=== PATIENT | male | born 1935 | race Caucasian/White ===

== ENCOUNTER → 2016-07-24 | Outpatient (CLI) | payer OTHER ==
--- NOTE | 2016-07-24 16:12 | DX ---
Videofluoroscopy with Speech Therapy Clinical History: 81-year-old male with Parkinson's disease and dysphagia. Technique: This exam was performed in conjunction with Evita, the speech therapist, and the patient was imaged in the lateral projection while ingesting thin barium, nectar-consistency barium, honey-co nsistency barium, applesauce coated with barium, a cracker coated with barium, and a 13-mm barium tab let mixed with applesauce. Fluoroscopy Time: 4.9 minutes (exposure dose of 12.90 mGy). Comparison Study: None. Findings: There is delayed oral mastication with some tongue fasciculations in this patient with a hi story of Parkinson's disease and some transient pooling in the vallecular aspect of the hypopharynx. With the thin and nectar-consistency liquid, there was some epiglottic undercoating, vestibular penet ration, and trace nonsensate aspiration, and the chin-tuck maneuver was only intermittently effective . There is no nasopharyngeal reflux, or cricopharyngeus spasm (or other upper esophageal sphincter dy sfunction). The patient was able to ingest a barium tablet with applesauce with relatively prompt egr ess. The ivette cracker was very prolonged during the oral phase. Impression: Azhdkdas-eu-bzhdyu oropharyngeal dysphagia, with silent aspiration noted with thin liquid , as well as an episode with nectar, with a chin-tuck maneuver only intermittently effective. Please also refer to the speech therapist's separate assessments and specific recommendations for fol low up.
== END ==
DX: R13.12 Dysphagia, oropharyngeal phase (principal); G20 Parkinson's disease
CPT/HCPCS: 74230; 92611; G8996; G8997; G8998

== ENCOUNTER 2016-08-15 09:07 | Inpatient (IN) | payer OTHER ==
--- NOTE | 2016-08-15 09:11 | EDPHY ---
HPI/HX/ROS/PE/MDM Narrative: CHIEF COMPLAINT: "Unresponsive." HPI: The patient is an 81-year-old male with a history of Parkinson's who presents via EMS for unresponsiveness. Per EMS when his caregivers tried to wake him up he would only respond with one word and then became unresponsive. He was responsive for EMS and can now follow commands. History is somewhat limited due to the patient's clinical condition. Family is not currently at bedside. REVIEW OF SYSTEMS: Aside from elements discussed in the HPI, a comprehensive 10-point review of systems was reviewed and is negative. PMH: Parkinson's, hypertension, diastolic heart failure, aortic stenosis. SOCIAL HISTORY: Lives in Assisted Living. . PHYSICAL EXAM: General: Patient is awake but somewhat sleepy in no acute distress. ENT: Eyes are normal to inspection. ENT inspection normal. Neck: Normal inspection. Full range of motion. Respiratory: No respiratory distress. Breath sounds normal bilaterally. Cardiovascular: Regular rate and rhythm. Strong peripheral pulses. Abdomen: The abdomen is nontender to palpation. There are no peritoneal signs. There are normal bowel sounds. Back: Normal to inspection. No tenderness to palpation. Skin: Normal color. No rash. Warm and dry. Extremities: Normal appearance. Full range of motion. Neuro: No focal deficits. Portions of this note were transcribed by an ED scribe. I personally performed the history, physical exam, and medical decision making; and confirm the accuracy of the information in the transcribed note. ED Course: I met EMS on arrival and obtained a report from the yard supervisor. An IV was established and labs ordered. 1033: Reassessed patient. He is sitting up in bed comfortably and reports feeling completely back to normal. 1111: Patient did not feel well enough to transfer. He and family requested admission. Consulted with Mandi Mi, hospitalist. She accepts admission for Dr. Avelar. MDM: This patient has severe Parkinsons and presents with an episode of decreased responsiveness this morning that has resolved in the ED. We performed a screening workup to determine possible etiology but no major abnormalities are seen. I see no signs of SAH, CVA, UTI, hyponatremia or renal failure. Given ongoing difficulty with ADLs, patient requires admission for workup and treatment, possible placement. - Data Points Laboratory Results: Laboratory Results 08/15/16 09:15 08/15/16 09:15 03/12/2508/15/16 08/15/16 09:29 09:15 09:15 WBC 5.41 10^3/uL 10^3/uL (3.80-9.50) RBC 4.47 10^6/uL 10^6/uL (4.40-6.38) Hgb 14.5 g/dL g/dL (13.7-17.5) Hct 43.7 % % (40.0-51.0) MCV 97.8 fL fL (81.5-99.8) MCH 32.4 pg pg (27.9-34.1) MCHC 33.2 g/dL g/dL (32.4-36.7) RDW 12.2 % % (11.5-15.2) Plt Count 215 10^3/uL 10^3/uL (150-400) MPV 9.7 fL fL (8.7-11.7) Neut % (Auto) 56.0 % % (39.3-74.2) Lymph % (Auto) 31.4 % % (15.0-45.0) [place] % (Auto) 7.6 % % (4.5-13.0) Eos % (Auto) 3.7 % % (0.6-7.6) Baso % (Auto) 1.1 % % (0.3-1.7) Nucleat RBC Rel Count 0.0 % % (0.0-0.2) Absolute Neuts (auto) 3.03 10^3/uL 10^3/uL (1.70-6.50) Absolute Lymphs (auto) 1.70 10^3/uL 10^3/uL (1.00-3.00) Absolute Monos (auto) 0.41 10^3/uL 10^3/uL (0.30-0.80) Absolute Eos (auto) 0.20 10^3/uL 10^3/uL (0.03-0.40) Absolute Basos (auto) 0.06 10^3/uL 10^3/uL (0.02-0.10) Absolute Nucleated RBC 0.00 10^3/uL 10^3/uL (0-0.01) Immature Gran % 0.2 % % (0.0-1.1) Immature Gran # 0.01 10^3/uL 10^3/uL (0.00-0.10) Sodium 144 mEq/L mEq/L (134-144) Potassium 4.6 mEq/L mEq/L (3.5-5.2) Chloride 108 mEq/L mEq/L (97-110) Carbon Dioxide 30 mEq/l mEq/l (22-31) Anion Gap 6 mEq/L L mEq/L (8-16) BUN 22 mg/dL mg/dL (7-23) Creatinine 0.9 mg/dL mg/dL (0.7-1.3) Estimated GFR > 60 Glucose 76 mg/dL mg/dL (70-100) Calcium 9.8 mg/dL mg/dL (8.5-10.4) Urine Color ALAINA Urine Appearance MODERATELY TURBID Urine pH 7.0 (5.0-7.5) Ur Specific [place] 1.016 (1.002-1.030) Urine Protein NEGATIVE (NEGATIVE) Urine Ketones NEGATIVE (NEGATIVE) Urine Blood NEGATIVE (NEGATIVE) Urine Nitrate NEGATIVE (NEGATIVE) Urine Bilirubin NEGATIVE (NEGATIVE) Urine Urobilinogen NEGATIVE EU EU (0.2-1.0) Ur Leukocyte Esterase NEGATIVE (NEGATIVE) Ur Culture Indicated? NOT INDICATED (NI) Urine Glucose NEGATIVE (NEGATIVE) Medications Given: Discontinued Medications Sodium Chloride (Ns) 1,000 mls @ 0 mls/hr IV ONCE ONE PRN Reason: Wide Open Stop: 08/15/16 09:21 Last Admin: 08/15/16 09:30 Dose: 1,000 mls General Initial Vital Signs: Initial Vital Signs Temperature (C) 36.6 C 08/15/16 09:07 Heart Rate 85 08/15/16 09:07 Respiratory Rate 19 08/15/16 09:07 Blood Pressure 185/110 H 08/15/16 09:07 O2 Sat (%) 95 08/15/16 09:07 O2 Delivery Mode Room Air Allergies/Adverse Reactions: [place] Allergy (Intermediate, Uncoded 04/25/14 20:04) Other-Enter Comments MSG Allergy (Intermediate, Uncoded 04/25/14 20:04) Other-Enter Comments Home Medications: Medication Instructions Recorded Acetaminophen [Tylenol ES 500 mg 1,000 mg PO DAILY PRN 04/11/15 (*)] Aspirin EC [Aspirin EC 81 mg (*)] 81 mg PO DAILY 04/11/15 Latanoprost 0.005% [Xalatan 0.005% 1 drops EACHEYE HS 04/11/15 (*)] Quinapril HCl [Accupril 40 MG] 40 mg PO BID 04/11/15 Sodium Cl Nasal [[place] (*)] 1 spray NS DAILY PRN 04/11/15 DULoxetine [Cymbalta 30 MG (*)] 30 mg PO DAILY 01/09/16 Loratadine [Claritin 10 mg] 10 mg PO DAILY 01/09/16 Multivitamins [Multivitamin (*)] 1 each PO DAILY 01/09/16 Psyllium Husk [Metamucil] 0.52 gm PO DAILY 01/09/16 Furosemide [Lasix 20 MG (*)] 20 mg PO DAILY 03/26/16 Potassium Chloride [Klor-Con 10] 10 meq PO DAILY 03/26/16 Amoxicillin 2,000 mg PO DAILY PRN 08/15/16 Bisacodyl [Dulcolax] 10 mg RC DAILY PRN 08/15/16 C/E/Zn/Cu/OM3/DHA/EPA/LUT/ZEAX 2 each PO DAILY 08/15/16 [Preservision Areds 2 Softgel] Carbidopa/Levodopa 25/100Mg 1 tab PO QID 08/15/16 [Sinemet 25/100 MG (*)] Desonide 0.05% [Desonide 0.05% 1 lori TP DAILY PRN 08/15/16 Cream (*)] Gabapentin [Neurontin 100 MG (*)] 100 mg PO QID 08/15/16 Herbals/Supplements -Info Only 1 ea PO DAILY 08/15/16 Departure - Departure Disposition: [facility] Acute Clinical Impression: Altered mental status Qualifiers: Altered mental status type: unspecified Qualified Code(s): R41.82 - Altered mental status, unspecified Condition: Fair Report Scribed for: Dmitry June Report Scribed by: Nash Pérez Date of Report: 08/15/16 Time of Report: 09:12
[2016-08-15] MEDS ORDERED: NS 1,000 ML IV ONE (09:20)
[2016-08-15 09:31] LABS: % IMMATURE GRANULYOCYTES 0.2 % (0.0-1.1); ABSOLUTE IMMATURE GRANULOCYTES 0.01 10^3/uL (0.00-0.10); ADD DIFF? NO; ADD MORPH? NO; ADD SCAN? NO; ATYPICAL LYMPHOCYTE FLAG 10 (0-99); FRAGMENT RBC FLAG 0 (0-99); HEMATOCRIT 43.7 % (40.0-51.0); HEMOGLOBIN 14.5 g/dL (13.7-17.5); LEFT SHIFT FLG 0 (0-99); LIPEMIA HEMOLYSIS FLAG 80 (0-99); MEAN CELL HEMOGLOBIN 32.4 pg (27.9-34.1); MEAN CELL HEMOGLOBIN CONCENTR. 33.2 g/dL (32.4-36.7); MEAN CELL VOLUME 97.8 fL (81.5-99.8); MEAN PLATELET VOLUME 9.7 fL (8.7-11.7); PLATELET CLUMPS FLAG 10 (0-99); PLATELET COUNT 215 10^3/uL (150-400); RED BLOOD CELL COUNT 4.47 10^6/uL (4.40-6.38); RED CELL DISTRIBUTION WIDTH 12.2 % (11.5-15.2)
[2016-08-15 09:43] LABS: COLOR AMBER; LEUKOCYTE ESTERASE,URINE NEGATIVE (NEGATIVE); NITRITE,URINE NEGATIVE (NEGATIVE)
--- NOTE | 2016-08-15 09:43 | CPEKG ---
Heart Rate: 69 RR Interval: 870 P-R Interval: 172 QRSD Interval: 108 QT Interval: 412 QTC Interval: 442 P Rogers: 55 QRS Rogers: -27 T Wave Rogers: 21 EKG Severity - NORMAL ECG - EKG Impression: SINUS RHYTHM Electronically Signed By: Dmitry June 15-Aug-2016 14:46:43
[2016-08-15 09:46] LABS: ANION GAP 6 mEq/L (8-16); CALCIUM 9.8 mg/dL (8.5-10.4); CARBON DIOXIDE 30 mEq/l (22-31); CHLORIDE 108 mEq/L (97-110); CREATININE 0.9 mg/dL (0.7-1.3); GLOMERULAR FILTRATION RATE > 60; GLUCOSE 76 mg/dL (70-100); POTASSIUM 4.6 mEq/L (3.5-5.2); SODIUM 144 mEq/L (134-144)
[2016-08-15] MEDS ORDERED: DESONIDE 0.05% 15 GM CREAM TP PRN (13:19)
[2016-08-15] MEDS ORDERED: SODIUM CL NASAL 45 ML BTL NS PRN (13:19)
[2016-08-15] MEDS ORDERED: ACETAMINOPHEN 500 MG TAB PO PRN (13:19)
[2016-08-15] MEDS ORDERED: BISACODYL 10 MG SUPP PR PRN (13:19)
[2016-08-15] MEDS ORDERED: NS 1,000 ML IV SCH (15:30)
[2016-08-15] MEDS: CARBIDOPA/LEVODOPA 25 MG/100 MG TAB PO SCH ×2 (17:02→21:21)
[2016-08-15] MEDS: GABAPENTIN 100 MG CAP PO SCH ×2 (17:02→21:21)
[2016-08-15] MEDS ORDERED: ONDANSETRON 4 MG/2 ML VIAL IVP PRN (18:06)
[2016-08-15] MEDS ORDERED: ACETAMINOPHEN 325 MG TAB PO PRN (18:06)
--- NOTE | 2016-08-15 18:44 | PDGENHP ---
History and Physical History and Physical: HISTORY AND PHYSICAL CC:Change in mentation HISTORY: patient himself does not really remember what happened today, only recalls that his family described to happen. History comes mostly from his family through our ER staff and paramedics. The patient was at home and his family went to wake him up from bed today they had difficulty waking him. Eventually he did wake up. There is no evidence of seizure that the family noticed. I am unable to determine from the available history how quickly the patient awakened or whether he was confused upon awakening. There had been no evidence of incontinence or tongue biting or other injury. The patient apparently did not have any specific concerning symptoms at that time otherwise. He tells me that yesterday he had a good day, ate his meals well, had no fevers respiratory cardiac or neurologic symptoms when I reviewed those systems. Upon arrival of paramedics at his home the patient was awake and cooperative and normally conversant. Upon arrival here he had a normal neurologic exam per the ER staff. The patient tells me there have been no changes in medications. He does not drink alcohol. ROS: A comprehensive 10 system review revealed no other significant findings PAST MEDICAL HISTORY: Parkinson's disease, advanced Hypertension Diastolic congestive heart failure Aortic stenosis Urine retention FAMILY MEDICAL HISTORY: the patient does not recall any pertinent medical issues I could find nothing in terms of any significant family medical history and past records here SOCIAL HISTORY: The patient lives in assisted living apartment with his He has a long standing DNR order request No tobacco or alcohol MEDICATIONS: The patients list has been reconciled by our clinical pharmacist in the EMR. I have reviewed the list and ordered appropriate medicines. PHYSICAL EXAMINATION: Vital Signs: some hypertension otherwise stable without fever Mud Engineer: sinus rhythm in the ER Examination: General: alert, oriented, some memory deficit that seems at baseline otherwise good mentation, relaxed Neurologic: normal speech/language, normal rn angiography, no focal weakness Skin: warm, dry, good color, no rash HEENT: normal Neck: no mass or jvd Resps: relaxed Lungs: clear breath sounds Heart: regular, 2/6 systolic murmur at the base suggestive of aortic stenosis Abdomen: soft, nondistended, nontender, +BS, no mass Upper Extremities: normal Lower Extremities: no edema, warm No Bleeding or bruising IV site: looks normal LABORATORY DATA: unremarkable CBC metabolic panel and urinalysis ASSESSMENT: -ALTERED MENTATION IN THAT THE PATIENT WAS DIFFICULT TO AROUSE FROM SLEEP THIS MORNING, RESOLVED -SYSTOLIC HYPERTENSION -AORTIC STENOSIS -PARKINSON'S DISEASE The cause of this syndrome is unknown at this time. It is possible that he was merely sleeping and difficult to arouse from sleep. There was nothing to suggest stroke per se as far as I can tell but is really not clear what his neurologic status was upon awakening. He certainly has no signs of stroke at this time. there is no sign of infectious illness or internal organ dysfunction. Electrolytes are good. There was nothing to specifically suggest arrhythmia. He has no arrhythmia history. He does have some significant hypertension systolic here as well as Parkinson's disease and aortic stenosis. In patients with advanced Parkinson's disease it is very common to have autonomic instability with both systolic hypertension and marked orthostatic hypotension. He does take a diuretic and an OMER inhibitor and it is possible that he could have had a combination of low volume with OMER-inhibitor afterload in the setting of aortic stenosis and developed some hypotension making him hard to arouse. We have no direct evidence of this and 1 would think he would be more likely to have these problems in the way of postural syncope as opposed to trouble lying in bed. I have been unable at this point to find his vital signs from the paramedics on arrival at his place. PLANS: -Observe overnight for signs of instability in the way of vital signs or any signs of infectious or other medical process - Repeat lab tests in the morning -PT and OT evaluations for ambulation and mobility safety I have reviewed the patient's case in detail with Dr. Dmitry June I have reviewed the patient's past medical records as part of this assessment, including previous hospital records with multiple prior admissions here
[2016-08-15 19:20] LABS: ALANINE AMINOTRANSFERASE 21 IU/L (21-72); ALBUMIN 3.4 g/dL (3.5-5.0); ALKALINE PHOSPHATASE 135 IU/L (38-126); ANION GAP 7 mEq/L (8-16); ASPARTATE AMINOTRANSFERASE 21 IU/L (17-59); BILIRUBIN,TOTAL 1.3 mg/dL (0.1-1.4); CALCIUM 9.2 mg/dL (8.5-10.4); CARBON DIOXIDE 28 mEq/l (22-31); CHLORIDE 106 mEq/L (97-110); CREATININE 0.7 mg/dL (0.7-1.3); GLOMERULAR FILTRATION RATE > 60; GLUCOSE 96 mg/dL (70-100); POTASSIUM 4.2 mEq/L (3.5-5.2); SODIUM 141 mEq/L (134-144); TOTAL PROTEIN 6.8 g/dL (6.3-8.2)
[2016-08-16] MEDS: QUINAPRIL HCL 40 MG PO SCH ×3 (00:03→21:59)
[2016-08-16] MEDS: LATANOPROST 0.005% 2.5 ML OPHT DROPS EACHEYE SCH ×2 (00:03→22:11)
[2016-08-16] MEDS ORDERED: hydrALAZINE 10 MG TAB PO PRN (04:35)
[2016-08-16] MEDS: GABAPENTIN 100 MG CAP PO SCH ×4 (04:58→21:58)
[2016-08-16] MEDS: CARBIDOPA/LEVODOPA 25 MG/100 MG TAB PO SCH ×4 (04:58→21:58)
[2016-08-16 05:17] LABS: % IMMATURE GRANULYOCYTES 0.3 % (0.0-1.1); ABSOLUTE IMMATURE GRANULOCYTES 0.02 10^3/uL (0.00-0.10); ADD DIFF? NO; ADD MORPH? NO; ADD SCAN? NO; ATYPICAL LYMPHOCYTE FLAG 20 (0-99); FRAGMENT RBC FLAG 0 (0-99); HEMATOCRIT 39.1 % (40.0-51.0); HEMOGLOBIN 13.3 g/dL (13.7-17.5); LEFT SHIFT FLG 0 (0-99); LIPEMIA HEMOLYSIS FLAG 90 (0-99); MEAN CELL HEMOGLOBIN 32.7 pg (27.9-34.1); MEAN CELL VOLUME 96.1 fL (81.5-99.8); MEAN PLATELET VOLUME 9.9 fL (8.7-11.7); PLATELET CLUMPS FLAG 10 (0-99); PLATELET COUNT 203 10^3/uL (150-400); RED BLOOD CELL COUNT 4.07 10^6/uL (4.40-6.38)
[2016-08-16] MEDS: CETIRIZINE 10 MG TAB PO SCH (08:27)
[2016-08-16] MEDS: POTASSIUM CL 10 MEQ TAB PO SCH (08:27)
[2016-08-16] MEDS: PSYLLIUM METAMUCIL 1 PKT PO SCH (08:27)
[2016-08-16] MEDS: ASPIRIN EC 81 MG TAB PO SCH (08:27)
[2016-08-16] MEDS: DULoxetine 30 MG CAP PO SCH (08:27)
[2016-08-16] MEDS: PRESERVISION AREDS2 FORMULA EYE VIT 1 EACH PO SCH (08:27)
[2016-08-16] MEDS: MULTIVITAMINS 1 EACH TAB PO SCH (08:27)
[2016-08-16] MEDS: FUROSEMIDE 20 MG TAB PO SCH (08:27)
[2016-08-16] MEDS: ENOXAPARIN 40 MG/0.4 ML SYR SC SCH (08:28)
[2016-08-16] MEDS ORDERED: Herbals/Supplements -Info Only PO SCH (09:00)
[2016-08-16] MEDS: NS 1,000 ML IV SCH (15:30)
--- NOTE | 2016-08-16 17:37 | HOSPPROG ---
Hospitalist Progress Note Assessment/Plan: * Symptomatic orthostatic hypotension -per SHANK PAPERER was getting him up when unresponsive event happened -persistent orthostatic hypotension - suspect autonomic insufficiency -IVF overnight - recheck in am * Acute weakness - etiology unclear -now 2 person assist - needs rehab * Parkinson's -continue Sinemet * Aortic stenosis -check ECHO r/o symptomatic disease * Non-obstructive CAD * HTN -quinapril Subjective: No new complaints Objective: Vital Signs Temp Pulse Resp BP Pulse Ox 36.9 C 70 15 126/79 H 98 08/16/16 16:41 08/16/16 16:41 08/16/16 16:41 08/16/16 16:43 08/16/16 16:41 - Physical Exam Constitutional: no apparent distress, appears nourished, not in pain Cardiovascular: regular rate and rhythym, no murmur, rub, or gallop Respiratory: no respiratory distress, no rales or rhonchi, clear to auscultation Gastrointestinal: normoactive bowel sounds, soft, non-tender abdomen, no palpable masses Skin: no rashes or abrasions, no fluctuance, no induration Neurologic: AAOx3, sensation intact bilaterally Psychiatric: interacting appropriately, not anxious, not encephalopathic, thought process linear ICD10 Worksheet Patient Problems: Problems Problem Status Onset Altered mental status Acute Altered mental status Acute Bradykinesia Acute Fall at home Chronic Hypertension Chronic Parkinsons disease Chronic Weakness Chronic
[2016-08-17] MEDS: CARBIDOPA/LEVODOPA 25 MG/100 MG TAB PO SCH ×4 (04:59→21:05)
[2016-08-17] MEDS: GABAPENTIN 100 MG CAP PO SCH ×4 (04:59→21:05)
[2016-08-17 06:01] LABS: ANION GAP 5 mEq/L (8-16); CALCIUM 8.9 mg/dL (8.5-10.4); CARBON DIOXIDE 27 mEq/l (22-31); CHLORIDE 107 mEq/L (97-110); CREATININE 0.7 mg/dL (0.7-1.3); GLOMERULAR FILTRATION RATE > 60; GLUCOSE 73 mg/dL (70-100); POTASSIUM 3.8 mEq/L (3.5-5.2); SODIUM 139 mEq/L (134-144)
[2016-08-17] MEDS: DULoxetine 30 MG CAP PO SCH (09:59)
[2016-08-17] MEDS: ENOXAPARIN 40 MG/0.4 ML SYR SC SCH (09:59)
[2016-08-17] MEDS: FUROSEMIDE 20 MG TAB PO SCH (09:59)
[2016-08-17] MEDS: ASPIRIN EC 81 MG TAB PO SCH (09:59)
[2016-08-17] MEDS: POTASSIUM CL 10 MEQ TAB PO SCH (10:00)
[2016-08-17] MEDS: PSYLLIUM METAMUCIL 1 PKT PO SCH (10:00)
[2016-08-17] MEDS: PRESERVISION AREDS2 FORMULA EYE VIT 1 EACH PO SCH (10:30)
[2016-08-17] MEDS: QUINAPRIL HCL 40 MG PO SCH ×2 (10:30→21:05)
[2016-08-17] MEDS: CETIRIZINE 10 MG TAB PO SCH (12:29)
[2016-08-17] MEDS: MULTIVITAMINS 1 EACH TAB PO SCH (12:29)
[2016-08-17] MEDS: NS 1,000 ML IV SCH (12:30)
--- NOTE | 2016-08-17 17:17 | ECHO ---
[id number] + + [address] : : [place] [address] : : [phone] + + Adult Echocardiographic Report + + :Name: LUPE ORTEZ PStudy Date: 08/17/2016 10:04 AM : : Hospital Admission Number: [id number] : :: 1935 Gender: Male Height: 71 in : :Age: 81 yrs Race: WH Weight: 204 lb : :Reason For Study: Eval Valves : : BSA: 2.1 meters2: :History: Syncope, Otrhostasis : + + MMode/2D Measurements \T\ Calculations IVSd: 1.0 cm LVIDd: 3.5 cm FS: 38.0 % LVOT diam: 2.1 cm LVPWd: 1.2 cm LVIDs: 2.2 cm EDV(Teich): 52.3 ml LVOT area: 3.5 cm2 ESV(Teich): 16.1 ml EF(Teich): 69.2 % Normal Measurement Values: + + :LVIDd (3.5-5.7cm) IVSd (0.6-1.1cm) LVPWd (0.6-1.1cm) Aortic Root (2.0-3.7cm)Left Atrium (1.5-4.0cm): :LV Vol(d) (76-115ml) LV Vol(s) (29-48ml) [place]ec Fraction (50-65%)PV Rob (0.6- 1.2m/s) TV Rob (0.4-1.0m/s) : :MV E Rob (0.8-1.0m/s)MV A Rob (0.3-1.0m/s)LVOT Rob (0.7-1.2m/s) Asc Ao Rob ( 0.9-1.8m/s) : + + Doppler Measurements \T\ Calculations MV E max rob: MV V2 max: MV P1/2t max rob: Ao V2 max: 78.0 cm/sec 105.7 cm/sec 81.7 cm/sec 299.7 cm/sec MV A max rob: MV max PG: MV P1/2t: 78.8 msec Ao max P.2 cm/sec 4.5 mmHg MVA(P1/2t): 2.8 cm2 35.9 mmHg MV E/A: 0.80 MV V2 mean: MV dec slope: Ao mean PG: MV dec time: 70.8 cm/sec 23.3 mmHg 0.26 sec MV mean P.4 cm/sec2 Ao V2 mean: 2.2 mmHg 220.5 cm/sec MV V2 VTI: Ao V2 VTI: 64.3 cm 22.7 cm LALO(I,D): 0.87 cm2 MVA(VTI): 2.5 cm2 LV V1 mean PG: SV(LVOT): 55.8 ml 1.6 mmHg LV V1 mean: 57.2 cm/sec LV V1 VTI: 16.1 cm Left Ventricle The left ventricle is normal in size. There is normal left ventricular wall thickness. The left ventricle is hyperdynamic. The left ventricular ejection fraction is normal. There is Doppler evidence for diastolic dysfunction. Ejection Fraction = 70%. Right Ventricle The right ventricle is normal size. Atria The left atrial size is normal. Right atrial size is normal. Mitral Valve There is mild mitral annular calcification. There is no mitral valve stenosis. There is no mitral regurgitation noted. Tricuspid Valve Normal tricuspid valve. Aortic Valve Mild-Moderate Aortic Valve Calcification. The aortic valve is not well visualized. The Ao Vmax is 3.3 m/s with a Mean PG of 23 mmHg and a Max PG of 43 mmHg. Moderate valvular aortic stenosis. There is no aortic insufficiency. Pulmonic Valve There is a flail pulmonic valve leaflet. Great Vessels The aortic root is normal size. Pericardium/Pleural There is no pericardial effusion. Conclusion Off axis views obtained. Technically limited study. Off axis views obtained. The left ventricle is hyperdynamic. The left ventricular ejection fraction is normal. There is Doppler evidence for diastolic dysfunction. Ejection Fraction = 70%. There are no obvious wall motion abnormalities. There is mild mitral annular calcification. Normal tricuspid valve. Poorly visualized aortic valve. Mild-Moderate Aortic Valve Calcification The Ao Vmax is 3.3 m/s with a Mean PG of 23 mmHg and a Max PG of 43 mmHg. Moderate valvular aortic stenosis. There is no pericardial effusion. Final Reading Physician: Scott Garcia signed on 08/17/2016 05:15 PM Ordering Physician: Savanah William Performed By: Chau Finney, DINORACS
--- NOTE | 2016-08-17 19:19 | HOSPPROG ---
Hospitalist Progress Note Assessment/Plan: * Symptomatic orthostatic hypotension -per SUPPLY PERSON was getting him up when unresponsive event happened -persistent orthostatic hypotension - suspect autonomic insufficiency -IVF overnight - orthostasis improved * Acute weakness - etiology unclear -now 2 person assist - needs rehab * Parkinson's -continue Sinemet * Aortic stenosis - moderate -unlikely to be contributing to presentation * Non-obstructive CAD * HTN -quinapril Subjective: NO new complaints Objective: Vital Signs Temp Pulse Resp BP Pulse Ox 36.6 C 76 16 132/81 H 97 08/17/16 17:08 08/17/16 17:08 08/17/16 17:08 08/17/16 17:08 08/17/16 17:08 Laboratory Results 08/17/16 05:20 08/16/16 08/17/16 08/18/16 05:59 05:59 05:59 Intake Total 1150 804 Output Total 500 Balance 1150 304 - Physical Exam Constitutional: no apparent distress, appears nourished, not in pain Cardiovascular: regular rate and rhythym, no murmur, rub, or gallop Respiratory: no respiratory distress, no rales or rhonchi, clear to auscultation Gastrointestinal: normoactive bowel sounds, soft, non-tender abdomen, no palpable masses Skin: no rashes or abrasions, no fluctuance, no induration ICD10 Worksheet Patient Problems: Problems Problem Status Onset Altered mental status Acute Altered mental status Acute Bradykinesia Acute Fall at home Chronic Hypertension Chronic Parkinsons disease Chronic Weakness Chronic
[2016-08-17] MEDS: LATANOPROST 0.005% 2.5 ML OPHT DROPS EACHEYE SCH ×2 (21:58→22:00)
[2016-08-18] MEDS: GABAPENTIN 100 MG CAP PO SCH ×4 (05:41→21:59)
[2016-08-18] MEDS: CARBIDOPA/LEVODOPA 25 MG/100 MG TAB PO SCH ×4 (05:41→22:00)
[2016-08-18] MEDS: PSYLLIUM METAMUCIL 1 PKT PO SCH (10:08)
[2016-08-18] MEDS: ASPIRIN EC 81 MG TAB PO SCH (10:08)
[2016-08-18] MEDS: FUROSEMIDE 20 MG TAB PO SCH (10:08)
[2016-08-18] MEDS: DULoxetine 30 MG CAP PO SCH (10:08)
[2016-08-18] MEDS: PRESERVISION AREDS2 FORMULA EYE VIT 1 EACH PO SCH (10:09)
[2016-08-18] MEDS: POTASSIUM CL 10 MEQ TAB PO SCH (10:09)
[2016-08-18] MEDS: ENOXAPARIN 40 MG/0.4 ML SYR SC SCH (10:20)
[2016-08-18] MEDS: MULTIVITAMINS 1 EACH TAB PO SCH (10:21)
[2016-08-18] MEDS: CETIRIZINE 10 MG TAB PO SCH (10:21)
[2016-08-18] MEDS: QUINAPRIL HCL 40 MG PO SCH (15:12)
--- NOTE | 2016-08-18 17:04 | HOSPPROG ---
Hospitalist Progress Note Assessment/Plan: * Symptomatic orthostatic hypotension -per TOWER DIRECTOR was getting him up when unresponsive event happened -persistent orthostatic hypotension - suspect autonomic insufficiency -IVF overnight - orthostasis improved * Acute weakness - needs rehab * Parkinson's -continue Sinemet * Aortic stenosis - moderate -unlikely to be contributing to presentation * Non-obstructive CAD * HTN -blood pressure running low -hold BP meds and monitor -this may help his orthostasis Subjective: Eating well. Stronger today Objective: Vital Signs Temp Pulse Resp BP Pulse Ox 36.7 C 73 20 121/72 H 96 08/18/16 15:02 08/18/16 15:02 08/18/16 15:02 08/18/16 15:02 08/18/16 15:02 Laboratory Results 08/17/16 05:20 08/17/16 08/18/16 08/19/16 05:59 05:59 05:59 Intake Total 1150 804 Output Total 500 Balance 1150 304 - Physical Exam Constitutional: no apparent distress, appears nourished, not in pain Cardiovascular: regular rate and rhythym, no murmur, rub, or gallop Respiratory: no respiratory distress, no rales or rhonchi, clear to auscultation Gastrointestinal: normoactive bowel sounds, soft, non-tender abdomen, no palpable masses Skin: no rashes or abrasions, no fluctuance, no induration Musculoskeletal: other (mask facies, hypokinesia) Neurologic: AAOx3, sensation intact bilaterally Psychiatric: interacting appropriately, not anxious, not encephalopathic, thought process linear ICD10 Worksheet Patient Problems: Problems Problem Status Onset Altered mental status Acute Altered mental status Acute Bradykinesia Acute Fall at home Chronic Hypertension Chronic Parkinsons disease Chronic Weakness Chronic
[2016-08-18] MEDS: LATANOPROST 0.005% 2.5 ML OPHT DROPS EACHEYE SCH (22:06)
[2016-08-18 23:14] VITALS: PULSE 78
[2016-08-19] MEDS: GABAPENTIN 100 MG CAP PO SCH ×2 (05:03→13:12)
[2016-08-19] MEDS: CARBIDOPA/LEVODOPA 25 MG/100 MG TAB PO SCH ×2 (05:03→13:12)
[2016-08-19] MEDS: CETIRIZINE 10 MG TAB PO SCH (09:21)
[2016-08-19] MEDS: ENOXAPARIN 40 MG/0.4 ML SYR SC SCH (09:21)
[2016-08-19] MEDS: PRESERVISION AREDS2 FORMULA EYE VIT 1 EACH PO SCH (09:21)
[2016-08-19] MEDS: ASPIRIN EC 81 MG TAB PO SCH (09:21)
[2016-08-19] MEDS: DULoxetine 30 MG CAP PO SCH (09:21)
[2016-08-19] MEDS: MULTIVITAMINS 1 EACH TAB PO SCH (09:21)
[2016-08-19] MEDS: PSYLLIUM METAMUCIL 1 PKT PO SCH (09:34)
[2016-08-19 09:38] VITALS: BP 147/78; RESP 14; TEMP 98.2; O2SAT 95
--- NOTE | 2016-08-19 11:22 | PDIAF ---
- Diagnosis Diagnosis: parkinsons, orthostatic hypotension, weakness Code Status: Do Not Resuscitate - Medication Management Discharge Medications: Medications to Continue on Transfer Acetaminophen [Tylenol ES 500 mg (*)] 1,000 mg PO DAILY PRN 04/11/15 [Last Taken 05/13/15] Aspirin EC [Aspirin EC 81 mg (*)] 81 mg PO DAILY 04/11/15 [Last Taken 08/14/16] Latanoprost 0.005% [Xalatan 0.005% (*)] 1 drops EACHEYE HS 04/11/15 [Last Taken 08/14/16] Sodium Cl Nasal [[place] (*)] 1 spray NS DAILY PRN 04/11/15 [Last Taken Unknown] DULoxetine [Cymbalta 30 MG (*)] 30 mg PO DAILY 01/09/16 [Last Taken 08/14/16] Loratadine [Claritin 10 mg] 10 mg PO DAILY 01/09/16 [Last Taken 08/14/16] Multivitamins [Multivitamin (*)] 1 each PO DAILY 01/09/16 [Last Taken 03/26/16] Psyllium Husk [Metamucil] 0.52 gm PO DAILY 01/09/16 [Last Taken 03/26/16] Amoxicillin 2,000 mg PO DAILY PRN 08/15/16 [Last Taken Unknown] Bisacodyl [Dulcolax] 10 mg RC DAILY PRN 08/15/16 [Last Taken Unknown] C/E/Zn/Cu/OM3/DHA/EPA/LUT/ZEAX [Preservision Areds 2 Softgel] 2 each PO DAILY [Last Taken 08/14/16] Carbidopa/Levodopa 25/100Mg [Sinemet 25/100 MG (*)] 1 tab PO QID 08/15/16 [Last Taken 08/14/16] Desonide 0.05% [Desonide 0.05% Cream (*)] 1 lori TP DAILY PRN 08/15/16 [Last Taken Unknown] Gabapentin [Neurontin 100 MG (*)] 100 mg PO QID 08/15/16 [Last Taken 08/14/16] Herbals/Supplements -Info Only 1 ea PO DAILY 08/15/16 [Last Taken Unknown] Discharge Medications: Refer to the Discharge Home Medication list for PRN reason. - Orders Services needed: Registered Nurse, Master Design Inserter, Physical Therapy, Occupational Therapy Diet Recommendation: no restrictions on diet Diet Texture: Regular Texture Diet, Thin Liquids, Meds Whole in Puree - Follow Up Care Current Providers and Referrals: Jaida Dugan MD [Medical Doctor] - As per Instructions
--- NOTE | 2016-08-19 12:09 | GDS ---
[f rep st] DISCHARGE SUMMARY DIAGNOSES: 1. Symptomatic orthostatic hypotension. Quinapril 40 mg daily, Lasix and potassium have all been d iscontinued. 2. Acute weakness; needs ongoing skilled rehab after discharge. 3. Parkinson disease. 4. History of aortic stenosis. 5. Nonobstructive coronary artery disease. 6. Hypertension. 7. Urinary retention. PROCEDURES: Echocardiogram: EF of 70%. Doppler evidence for diastolic dysfunction. No wall motio n abnormalities. Mild aortic valve calcifications with moderate aortic stenosis. HOSPITAL COURSE: The patient is an 81-year-old man with a history significant for Parkinson disease , hypertension. He was admitted with an episode of change in mentation. He is currently living at home. When his family went to wake him up, they had difficulty arousing him and he was confused upo n awakening. They brought him to the emergency department and he was essentially close to baseline; however, he had marked orthostatic hypotension and it was felt that the blood pressure medications and dehydration, as well as afterload reduction in the setting of aortic stenosis may have caused parrish orta to have symptoms he presented with. The quinapril, Lasix were discontinued at the time of admissi on, and he was monitored in the house. His blood pressure stabilized, slightly higher than goal; ho wever, with this blood pressure his orthostatic hypotension improved to a point where he was no long er having symptoms. He worked with physical and occupational therapy, and he was quite weak and dec onditioned and felt that skilled rehab would be beneficial to him at the time of discharge. Echocar diogram was done to review his aortic stenosis. This was stable and likely not contributing signifi cantly to his presenting symptoms. After 3 days in the hospital, he was felt stable to be discharge d to long term. At this time, I will continue to hold his quinapril and Lasix. Certainly if his blood pressure becomes escalated at the skilled rehab, they can resume his quinapril at a lower dose and monitor this closely. CONDITION ON DISCHARGE: Good. PHYSICAL EXAMINATION: VITAL SIGNS: Blood pressure is 147/78; this is adequate control given his pre senting condition. Heart rate 78. He is 95% on room air. GENERAL: He is alert. HEART: Regular. LUNGS: Clear. EXTREMITIES: He has no significant edema. DISCHARGE MEDICATIONS: Please see discharge medication form with noted above changes of discontinui ng quinapril and Lasix. FOLLOWUP INSTRUCTIONS: He will be discharged to [facility] for ongoing rehab f or his deconditioning and weakness. Total time spent with the patient on the day of discharge and coordination of care is 35 minutes. /[id number]/MODL
== END 2016-08-19 13:41 | DRG 312 ==
LOC: EDUNIT# → F3N 12:53 → OBSVTOIN 08-16 14:59 → F3N 08-17 18:53
PROVIDERS: ADMIT Hospitalist; ATTEND Internal Medicine
DX: I95.1 Orthostatic hypotension (principal); R53.1 Weakness; I35.0 Nonrheumatic aortic (valve) stenosis; G20 Parkinson's disease; I11.0 Hypertensive heart disease with heart failure; I25.10 Atherosclerotic heart disease of native coronary artery without angina pectoris; R33.9 Retention of urine, unspecified; I50.30 Unspecified diastolic (congestive) heart failure
CPT/HCPCS: 92610-GN; 97110-GP; 97162-GP; 97166-GO; 97530-GO; 97530-GP; G0378; G8978-GP-CK; G8979-GP-CI; G8987-GO-CL; G8988-GO-CJ; G8996-GN-CI; G8997-GN-CI; G8998-GN-CI; J1650

== ENCOUNTER 2016-09-20 11:17 | Day surgery (SDC) | payer OTHER ==
[2016-09-20] MEDS ORDERED: LIDOCAINE 1% 5 ML SDV ONE (11:36)
[2016-09-20] MEDS ORDERED: BUPIVACAINE 0.5% 30 ML SDV ONE (11:39)
[2016-09-20] MEDS ORDERED: LIDOCAINE 1% 30 ML SDV ONE (11:39)
[2016-09-20] MEDS ORDERED: LR 1,000 ML IV ONE (12:30)
[2016-09-20] MEDS ORDERED: LIDOCAINE 1% 5 ML SDV ID PRN (12:30)
[2016-09-20] MEDS ORDERED: PROPOFOL 200 MG/20 ML VIAL ONE ×2 (12:52→14:23)
[2016-09-20] MEDS ORDERED: DEXAMETHASONE 4 MG/ML VIAL ONE (12:54)
[2016-09-20] MEDS ORDERED: CARBIDOPA/LEVODOPA 25 MG/100 MG TAB PO ONE (16:00)
[2016-09-20] MEDS ORDERED: HYDROCODONE/APAP 5/325 TAB ONE (16:34)
--- NOTE | 2016-09-22 08:17 | GOP ---
[f rep st] OPERATIVE REPORT DATE OF OPERATION: 09/20/2016 SURGEON: Jan Garg MD [employer] JUDGE: None. ANESTHESIA: Monitored anesthesia care and local. ANESTHESIOLOGIST: Dr. Bowens. PREOPERATIVE DIAGNOSIS: Bilateral inguinal hernia. POSTOPERATIVE DIAGNOSIS: Bilateral inguinal hernia. PROCEDURE PERFORMED: Bilateral open inguinal hernia repair Jacques type. FINDINGS: SPECIMENS: There are no specimens. ESTIMATED BLOOD LOSS: Minimal. INDICATIONS: This is an 81-year-old gentleman with Parkinson disease who has had recurrent left groin pain with findings of bilateral inguinal hernia. DESCRIPTION OF PROCEDURE: The patient was brought into the operating room. After induction of IV sedation, his groin was prepped chlorhexidine and draped sterilely. A time-out procedure was then performed according to institutional standards. Local anesthetic is infused in the skin and subcutaneous tissue and an ilioinguinal nerve block and along both groins. The patient left groin hernia was initially addressed. An open incision is made along the lines of Langerhans and deepened with electrocautery. Rashi's fascia is identified and divided and the external oblique is somewhat weakened, and there is a hernia defect with contents of the lipoma of the cord and hernia sac which are identified along the cord. The cord is preserved and Radu was used for gentle retraction. The floor of the inguinal canal was then completely cleared of tissue and a Prolene mesh was used to fashion a new floor using 0 Ethibond suture to tack down to the pubic tubercle medially and anterolaterally over the shelving edge of the inguinal ligament and transversalis muscle. The leaves of the mesh were then interposed across the cord to form a new ring, and this was placed over the top of the transversalis muscle. External oblique was reapproximated. The incision was then closed using 0 Vicryl for the deep layers and running 4-0 Monocryl. Dermabond was then applied. Right-sided dissection was similarly performed with the mesh used to attach the shelving edge of the inguinal ligament inferiorly and the transversalis muscle superiorly. A new ring was then created. The indirect inguinal defect is reduced. The skin is closed in layers. Dermabond is applied, and needle, instrument and sponge counts were verified to be correct x2. The patient was awakened and taken to the recovery room in stable condition. No immediate complications. /[id number]/MODL MTDD
== END 2016-09-20 17:45 | disposition home or self-care (01) ==
LOC: FSGY 11:17
PROVIDERS: ATTEND Surgery
PROC: 0YUA0JZ Supplement Bilateral Inguinal Region with Synthetic Substitute, Open Approach (ICD-10-PCS; principal; 2016-09-20 13:00)
DX: K40.20 Bilateral inguinal hernia, without obstruction or gangrene, not specified as recurrent (principal); G20 Parkinson's disease; I10 Essential (primary) hypertension; G62.9 Polyneuropathy, unspecified; F32.9 Major depressive disorder, single episode, unspecified
CPT/HCPCS: C1781; J1100; J2704

== ENCOUNTER 2017-03-06 19:01 | Emergency (ER) | payer OTHER ==
[2017-03-06] MEDS ORDERED: NS 500 ML IV ONE ×2 (19:10→19:23)
[2017-03-06 19:12] VITALS: RESP 16
--- NOTE | 2017-03-06 19:15 | EDPHY ---
HPI/HX/ROS/PE/MDM Narrative: CHIEF COMPLAINT: Unresponsive episode HPI: The patient is an 82-year-old male with a history of severe Parkinson's disease who lives in assisted living facility. Patient was brought to the emergency department by ambulance after facility staff noticed approximately 10 minutes of lack of responsiveness from the patient. He was still breathing and sitting in his chair, but would not interact with them. Per his who was not present during episode but is clearly knowledgeable of the patient, the patient has a history of similar episodes in the past secondary to his Parkinson 's disease. Patient has been well recently. On my exam, the patient denies any complaints. REVIEW OF SYSTEMS: Aside from elements discussed in the HPI, a comprehensive 10-point review of systems was reviewed and is negative. PMH: Parkinson's disease. Constipation. SOCIAL HISTORY: Lives in assisted living facility. . Retired. PHYSICAL EXAM: General:Patient is alert, in no acute distress. ENT:Eyes are normal to inspection. ENT inspection normal. Neck: Normal inspection. Full range of motion. Respiratory:No respiratory distress. Breath sounds normal bilaterally. Cardiovascular: Regular rate and rhythm. Strong peripheral pulses. Normal cap refill. Abdomen:The abdomen is nontender to palpation. There are no peritoneal signs. There are normal bowel sounds. Back: Normal to inspection. No tenderness to palpation. Skin: Normal color. No rash. Warm and dry. Extremities: Normal appearance. Full range of motion. Neuro: Bradykinesia and resting tremor noted. The patient is conversant and does not remember episode. MDM: This patient presents with an isolated episode of AMS, which is difficult to interpret as it was not witnessed by medical staff. Per the , it sounds like this has happened before. On my exam, the patient is asymptomatic and has remained so over his ED stay. We performed initial screening labs and CXR, all of which are normal. I offered the patient and his further testing to likely include CT head and UA, as well as observation admission to hospital, but patient would prefer to decline these tests and go home tonight. They promise to return for additional episodes or other worsening. - Data Points Laboratory Results: Laboratory Results 03/06/17 19:15 03/06/17 19:15 03/06/17 03/06/17 19:15 19:15 WBC 5.49 10^3/uL 10^3/uL (3.80-9.50) RBC 4.58 10^6/uL 10^6/uL (4.40-6.38) Hgb 14.3 g/dL g/dL (13.7-17.5) Hct 44.6 % % (40.0-51.0) MCV 97.4 fL fL (81.5-99.8) MCH 31.2 pg pg (27.9-34.1) MCHC 32.1 g/dL L g/dL (32.4-36.7) RDW 12.7 % % (11.5-15.2) Plt Count 229 10^3/uL 10^3/uL (150-400) MPV 10.0 fL fL (8.7-11.7) Neut % (Auto) 51.1 % % (39.3-74.2) Lymph % (Auto) 32.1 % % (15.0-45.0) Camp % (Auto) 8.4 % % (4.5-13.0) Eos % (Auto) 6.7 % % (0.6-7.6) Baso % (Auto) 1.5 % % (0.3-1.7) Nucleat RBC Rel Count 0.0 % % (0.0-0.2) Absolute Neuts (auto) 2.81 10^3/uL 10^3/uL (1.70-6.50) Absolute Lymphs (auto) 1.76 10^3/uL 10^3/uL (1.00-3.00) Absolute Monos (auto) 0.46 10^3/uL 10^3/uL (0.30-0.80) Absolute Eos (auto) 0.37 10^3/uL 10^3/uL (0.03-0.40) Absolute Basos (auto) 0.08 10^3/uL 10^3/uL (0.02-0.10) Absolute Nucleated RBC 0.00 10^3/uL 10^3/uL (0-0.01) Immature Gran % 0.2 % % (0.0-1.1) Immature Gran # 0.01 10^3/uL 10^3/uL (0.00-0.10) Sodium 141 mEq/L mEq/L (134-144) Potassium 4.8 mEq/L mEq/L (3.5-5.2) Chloride 103 mEq/L mEq/L (97-110) Carbon Dioxide 29 mEq/l mEq/l (22-31) Anion Gap 9 mEq/L mEq/L (8-16) BUN 19 mg/dL mg/dL (7-23) Creatinine 0.6 mg/dL L mg/dL (0.7-1.3) Estimated GFR > 60 Glucose 89 mg/dL mg/dL (70-100) Calcium 9.5 mg/dL mg/dL (8.5-10.4) Troponin I < 0.012 ng/mL ng/mL (0.000-0.034) Medications Given: Discontinued Medications Sodium Chloride (Ns) 500 mls @ 0 mls/hr IV EDNOW ONE; Wide Open PRN Reason: Protocol Stop: 03/06/17 19:11 Last Admin: 03/06/17 19:24 Dose: 500 mls Sodium Chloride (Ns) 500 mls @ 0 mls/hr IV ONCE ONE PRN Reason: Wide Open Stop: 03/06/17 19:24 Last Admin: 03/06/17 19:24 Dose: Not Given General Initial Vital Signs: Initial Vital Signs Temperature (C) 37.1 C 03/06/17 19:05 Heart Rate 77 03/06/17 19:05 Respiratory Rate 16 03/06/17 19:05 Blood Pressure 147/87 H 03/06/17 19:05 O2 Sat (%) 98 03/06/17 19:05 O2 Delivery Mode Room Air O2 (L/minute) 2 Allergies/Adverse Reactions: Aspertame Allergy (Intermediate, Uncoded 04/25/14 20:04) Other-Enter Comments MSG Allergy (Intermediate, Uncoded 04/25/14 20:04) Other-Enter Comments Home Medications: Medication Instructions Recorded Acetaminophen [Tylenol ES 500 mg 04/11/15 (*)] Aspirin EC [Aspirin EC 81 mg (*)] 04/11/15 Latanoprost 0.005% [Xalatan 0.005% 04/11/15 (*)] Sodium Cl Nasal [[place] (*)] 04/11/15 DULoxetine [Cymbalta 30 MG (*)] 01/09/16 Loratadine [Claritin 10 mg] 01/09/16 Multivitamins [Multivitamin (*)] 01/09/16 Psyllium Husk [Metamucil] 01/09/16 Amoxicillin 08/15/16 Bisacodyl [Dulcolax] 08/15/16 C/E/Zn/Cu/OM3/DHA/EPA/LUT/ZEAX 08/15/16 [Preservision Areds 2 Softgel] Carbidopa/Levodopa 25/100Mg 08/15/16 [Sinemet 25/100 MG (*)] Desonide 0.05% [Desonide 0.05% 08/15/16 Cream (*)] Gabapentin [Neurontin 100 MG (*)] 08/15/16 Herbals/Supplements -Info Only 08/15/16 Departure - Departure Disposition: Home, Routine, Self-Care Clinical Impression: Altered mental state, Parkinsons disease Condition: Good Instructions: Altered Mental Status (ED) Additional Instructions: Follow-up with your primary doctor within 72 hours. Return to the Emergency Department for fever, chest pain, shortness of breath, increasing pain or other worsening of condition. Referrals: Ana M Douglas MD [Primary Care Provider] - As per Instructions
[2017-03-06 19:21] LABS: % IMMATURE GRANULYOCYTES 0.2 % (0.0-1.1); ABSOLUTE IMMATURE GRANULOCYTES 0.01 10^3/uL (0.00-0.10); ADD DIFF? NO; ADD MORPH? NO; ADD SCAN? NO; ATYPICAL LYMPHOCYTE FLAG 10 (0-99); FRAGMENT RBC FLAG 0 (0-99); HEMATOCRIT 44.6 % (40.0-51.0); HEMOGLOBIN 14.3 g/dL (13.7-17.5); LEFT SHIFT FLG 0 (0-99); LIPEMIA HEMOLYSIS FLAG 80 (0-99); MEAN CELL HEMOGLOBIN 31.2 pg (27.9-34.1); MEAN CELL HEMOGLOBIN CONCENTR. 32.1 g/dL (32.4-36.7); MEAN CELL VOLUME 97.4 fL (81.5-99.8); PLATELET CLUMPS FLAG 0 (0-99); PLATELET COUNT 229 10^3/uL (150-400); RED BLOOD CELL COUNT 4.58 10^6/uL (4.40-6.38); RED CELL DISTRIBUTION WIDTH 12.7 % (11.5-15.2)
[2017-03-06 19:32] LABS: ANION GAP 9 mEq/L (8-16); CALCIUM 9.5 mg/dL (8.5-10.4); CARBON DIOXIDE 29 mEq/l (22-31); CHLORIDE 103 mEq/L (97-110); CREATININE 0.6 mg/dL (0.7-1.3); GLOMERULAR FILTRATION RATE > 60; GLUCOSE 89 mg/dL (70-100); POTASSIUM 4.8 mEq/L (3.5-5.2); SODIUM 141 mEq/L (134-144)
[2017-03-06 19:44] LABS: TROPONIN I < 0.012 ng/mL (0.000-0.034)
--- NOTE | 2017-03-06 19:49 | CPEKG ---
Heart Rate: 69 RR Interval: 870 P-R Interval: 180 QRSD Interval: 106 QT Interval: 420 QTC Interval: 450 P [place]: 56 QRS [place]: -30 T Wave [place]: 6 EKG Severity - BORDERLINE ECG - EKG Impression: SINUS RHYTHM EKG Impression: BORDERLINE IVCD WITH LAD Electronically Signed By: Byron Juarez 08-Mar-2017 08:09:15
[2017-03-06 20:21] VITALS: BP 143/87
[2017-03-06 23:00] VITALS: PULSE 80; TEMP 97.9; O2SAT 96
== END 2017-03-06 22:57 | disposition home or self-care (01) ==
LOC: EDUNIT#
DX: R41.82 Altered mental status, unspecified (principal); G20 Parkinson's disease; E86.9 Volume depletion, unspecified; Z79.82 Long term (current) use of aspirin

== ENCOUNTER 2018-06-22 14:58 | Inpatient (IN) | payer OTHER ==
--- NOTE | 2018-06-22 15:10 | EDPHY ---
H & P Time Seen by Provider: 06/22/18 15:10 HPI/ROS: HPI CHIEF COMPLAINT: Generalized weakness. Fever. HISTORY OF PRESENT ILLNESS: Very pleasant 83-year-old male presents emergency room by EMS from his living facility for fever, generalized weakness upper airway secretions. reports that he has been sick for approximately 24 hr. Appears globally weak. She does not live with him at the [facility]. He presents emergency room is febrile 100.1. Has a cough with upper airway rhonchi. Also appears globally weak and slow to respond. Past Medical History: History of Parkinson's disease, coronary artery disease, aortic stenosis, hypertension Past Surgical History: Multiple orthopedic surgeries. Social History: Resides at [facility]. Family History: Noncontributory ROS REVIEW OF SYSTEMS: Patient's extremely poor historian. History comes from EMS, at bedside. Exam Constitutional triage nursing summary reviewed, vital signs reviewed, awake/ alert. Vital signs noted. Febrile. 37.9. Dry on exam. Eyes normal conjunctivae and sclera, EOMI, PERRLA. HENT normal inspection, atraumatic, Dry mucus membranes, no epistaxis, neck supple/ no meningismus, no raccoon eyes. Respiratory upper airway rhonchi. Cardiovascular rate normal, regular rhythm, no murmur, no edema, distal pulses normal. Gastrointestinal soft, non-tender, no rebound, no guarding, normal bowel sounds, no distension, no pulsatile mass. Genitourinary no CVA tenderness. Musculoskeletal no midline vertebral tenderness, full range of motion, no calf swelling, no tenderness of extremities, no meningismus, good pulses, neurovascularly intact. Skin pink, warm, & dry, no rash, skin atraumatic. Neurologic global weakness. Parkinson's tremor. Left arm, parkinson's tremor on exam. Psychiatric normal mood/affect. Heme/Lymph/Immune no lymphadenopathy. Differential Diagnosis: Includes but is not limited to in a particular order sepsis, bacteremia, UTI, pneumonia, CHF, influenza Medical Decision Making: Plan for this patient IV establishment blood draw, blood cultures, lactic acid, chest x-ray, EKG, cardiac marker re-evaluate. Re-evaluation: EKG interpretation by me on record in Pathflow system. Impression time of EKG 1528, sinus rhythm rate of [address] elevation. T-wave abnormality lead 3 and AVF. Otherwise no acute ischemia. Lactic acid less than 2. Point care troponin 0.01. 1615: Consult the hospitalist service for admission for fever 37.9, upper airway secretions possible pneumonia. Chest x-ray reviewed I do not appreciate a dense pneumonia. I have ordered the patient IV Levaquin. Updated the patient and at bedside plan for admission. Spoke with the hospitalist service Dr. Gracia Influenza and urinalysis pending. 1650: Patient re-evaluated I have asked respiratory to common obtain an ABG, additionally suction his posterior pharynx as he has a little upper airway secretions. At This time respiratory is suctioning him in removing food and thick secretions. Patient is able to cough. He is able to swallow. No distress. Source: Patient, EMS - Personal History Tetanus Vaccine Date: >10 YRS - Medical/Surgical History Hx Asthma: No Hx Chronic Respiratory Disease: No Hx Diabetes: No Hx Cardiac Disease: Yes Hx Renal Disease: No Hx Cirrhosis: No Hx Alcoholism: No Hx HIV/AIDS: No Hx Splenectomy or Spleen Trauma: No Other PMH: HTN, PARKINSONS, BILAT KNEES, L HIP, lumbar back fxr, bilat TKA - Social History Smoking Status: Never smoked Constitutional: Initial Vital Signs Temperature (C) 37.9 C 06/22/18 14:58 Heart Rate 87 06/22/18 14:58 Respiratory Rate 16 06/22/18 14:58 Blood Pressure 160/98 H 06/22/18 14:58 O2 Sat (%) 95 06/22/18 14:58 O2 Delivery Mode Nasal Cannula O2 (L/minute) 2 Allergies/Adverse Reactions: Aspertame Allergy (Intermediate, Uncoded 04/25/14 20:04) Other-Enter Comments MSG Allergy (Intermediate, Uncoded 04/25/14 20:04) Other-Enter Comments Home Medications: Medication Instructions Recorded Acetaminophen [Tylenol 650 mg Supp 650 mg UT Q6 PRN 06/22/18 (OTC)] Acetaminophen [Tylenol ES 500 mg 1,000 mg PO DAILY 06/22/18 (*)] Acetaminophen [Tylenol ES 500 mg 1,000 mg PO DAILY PRN 06/22/18 (*)] Amoxicillin Trihydrate 2,000 mg PO ONCE PRN 06/22/18 [Amoxicillin] Aspirin [Aspirin 81mg (*)] 81 mg PO DAILY 06/22/18 Beta-Carotene(A) W-C & E/Min 1 tab PO BID 06/22/18 [Ocuvite] Bisacodyl [Dulcolax] 10 mg RC DAILY PRN 06/22/18 Carbidopa/Levodopa 25/100Mg 1 tab PO QID 06/22/18 [Sinemet 25/100 MG (*)] Desonide 0.05% [Desonide 0.05% 1 lori TP DAILY PRN 06/22/18 Cream (*)] Duloxetine HCl 20 mg PO MOTUWETHFR@09 06/22/18 Gabapentin [Neurontin 100 MG (*)] 200 mg PO DAILY 06/22/18 Gabapentin [Neurontin 300 MG (*)] 300 mg PO HS 06/22/18 Latanoprost 0.005% [Xalatan 0.005% 1 drops EACHEYE DAILY 06/22/18 (*)] Loratadine 10 mg PO DAILY PRN 06/22/18 Polyethylene Glycol 3350 [Miralax 17 gm PO BID 06/22/18 17 gm (*)] Polyethylene Glycol 3350 [Miralax 17 gm PO DAILY PRN 06/22/18 17 gm (*)] Propylene Glycol/Peg 400 [Systane 1 drop EACHEYE TID PRN 06/22/18 0.3-0.4% Eye Drops] Sodium Cl Nasal [[place] (*)] 1 spray NS DAILY PRN 06/22/18 Medical Decision Making - Data Points Laboratory Results: Laboratory Results 06/22/18 11:50 06/22/18 11:50 Microbiology Results: MICROBIOLOGY 06/22/18 16:10 Nasal, Sinus - Swab Respiratory Panel (PCR) - Final Human Rhinovirus/Enterovirus Medications Given: Albuterol/Ipratropium (Duoneb) 3 ml IH QID [facility] Stop: 12/19/18 20:59 Last Admin: 06/23/18 20:33 Dose: 3 ml Aspirin (Aspirin) 81 mg PO DAILY [facility] Stop: 12/20/18 08:59 Last Admin: 06/23/18 09:56 Dose: Not Given Carbidopa/Levodopa (Sinemet) 1 tab PO QID [facility] Stop: 12/19/18 20:59 Last Admin: 06/23/18 21:03 Dose: 1 tab Enoxaparin Sodium (Lovenox) 40 mg SC DAILY [facility] Stop: 12/20/18 08:59 Last Admin: 06/23/18 09:54 Dose: 40 mg Furosemide (Lasix Injection) 40 mg IVP DAILY [facility] Stop: 12/20/18 08:59 Last Admin: 06/23/18 10:02 Dose: 40 mg Gabapentin (Neurontin) 200 mg PO DAILY [facility] Stop: 12/20/18 08:59 Last Admin: 06/23/18 09:57 Dose: Not Given Gabapentin (Neurontin) 300 mg PO HS [facility] Stop: 12/19/18 20:59 Last Admin: 06/23/18 21:03 Dose: 300 mg Levofloxacin/Dextrose (Levaquin 750 Mg (Premix)) 150 mls @ 100 mls/hr IV Q24H [facility] PRN Reason: Protocol Stop: 07/23/18 15:59 Last Admin: 06/23/18 15:24 Dose: 150 mls Sodium Chloride (Ns) 1,000 mls @ 75 mls/hr IV CONT [facility] Stop: 12/19/18 20:14 Last Admin: 06/23/18 09:54 Dose: 1,000 mls Latanoprost (Xalatan 0.005%) 1 drops EACHEYE DAILY [facility] Stop: 12/20/18 08:59 Last Admin: 06/23/18 11:28 Dose: 1 drop Polyethylene Glycol (Miralax) 17 gm PO BID [facility] Stop: 12/19/18 20:59 Last Admin: 06/23/18 20:54 Dose: Not Given Discontinued Medications Acetaminophen (Tylenol) 1,000 mg PO EDNOW ONE Stop: 06/22/18 15:20 Last Admin: 06/22/18 15:53 Dose: Not Given Acetaminophen (Tylenol Rectal) 650 mg UT EDNOW ONE Stop: 06/22/18 15:21 Last Admin: 06/22/18 15:40 Dose: 650 mg Sodium Chloride (Ns) 1,000 mls @ 0 mls/hr IV EDNOW ONE; Wide Open PRN Reason: Protocol Stop: 06/22/18 15:19 Last Admin: 06/22/18 15:49 Dose: 1,000 mls Levofloxacin/Dextrose (Levaquin 750 Mg (Premix)) 150 mls @ 100 mls/hr IV EDNOW ONE PRN Reason: Protocol Stop: 06/22/18 17:31 Last Admin: 06/22/18 16:20 Dose: 150 mls Pneumococcal 13-Valent Conj Vacc (Prevnar 13 Syringe) 0.5 ml IM .ONCE ONE Stop: 06/23/18 00:02 Last Admin: 06/23/18 00:28 Dose: 0.5 ml Point of Care Test Results: Chemistry 06/22/18 15:38 POC Troponin I 0.02 ng/mL ng/mL (0.00-0.08) Departure - Departure Disposition: [facility] Inpatient Acute Clinical Impression: Pneumonia Qualifiers: Pneumonia type: due to unspecified organism Laterality: left Lung location: lower lobe of lung Qualified Code(s): J18.1 - Lobar pneumonia, unspecified organism Condition: Serious
[2018-06-22] MEDS ORDERED: NS 1,000 ML IV ONE (15:18)
[2018-06-22] MEDS ORDERED: ACETAMINOPHEN 500 MG TAB PO ONE (15:19)
[2018-06-22] MEDS ORDERED: ACETAMINOPHEN 650 MG SUPP PR ONE ×2 (15:20→15:23)
[2018-06-22 15:32] LABS: PLATELET COUNT 197 10^3/uL (150-400)
[2018-06-22 15:47] LABS: INR 1.21 (0.83-1.16); PROTIME(PATIENT) 15.5 SEC (12.0-15.0)
[2018-06-22] MEDS ORDERED: ACETAMINOPHEN 325 MG TAB PO PRN (17:12)
[2018-06-22] MEDS ORDERED: DESONIDE 0.05% 15 GM CREAM TP PRN (18:27)
[2018-06-22] MEDS ORDERED: SODIUM CL NASAL 45 ML BTL NS PRN (18:27)
[2018-06-22] MEDS ORDERED: Propylene Glycol/Peg 400 [Systane 0.3-0.4% Eye Drops] EACHEYE PRN (18:27)
[2018-06-22] MEDS ORDERED: BISACODYL 10 MG SUPP PR PRN (18:27)
--- NOTE | 2018-06-22 19:13 | GHP ---
DATE OF ADMISSION: 06/22/2018 CHIEF COMPLAINT: Cough and fever. HISTORY OF PRESENT ILLNESS: The patient is an 83-year-old gentleman with a past medical history of P arkinson disease, who currently resides at [place], who presented to the [facility] e mergency room on 06/22/2018, with complaints of worsening cough over the past 1 week. He was also no scarlett to be febrile above 101. His chest x-ray in the emergency room did not show any definite focal c onsolidation. PCR testing for RSV and influenza was negative. The patient was needing 2 L of oxygen to maintain normal saturations. History from the patient was limited, and his was not present at the bedside at the time of my evaluation. In the emergency room, he received a dose of Levaquin 7 50 mg, and blood cultures were obtained. PAST MEDICAL HISTORY: Parkinson disease, moderate aortic stenosis, hypertension, chronic diastolic h eart failure. PAST SURGICAL HISTORY: Orthopedic surgeries. HOME MEDICATIONS: Aspirin 81 mg daily, carbidopa/levodopa 25/100 one tablet 4 times a day, Cymbalta 20 mg tablets, gabapentin 200 mg daily and 300 mg nightly, latanoprost eye drops, loratadine 10 mg da annel, MiraLAX 17 g daily. ALLERGIES: Aspartame, MSG. FAMILY HISTORY: Unable to obtain full family history from patient. Per records, history of hyperten christiane. SOCIAL HISTORY: The patient is currently . He is retired from [employer]. Currently resides at [facility]. Code status has been discussed on prior admissions, and he has a ze-akb-psfvjor-resuscitation code status listed. REVIEW OF SYSTEMS: CONSTITUTIONAL: Positive for fevers. ENT: No complaints of any focal sinus miguelito n. CARDIOVASCULAR: No reports of any chest pains or syncopal episodes. RESPIRATORY: Positive for cough that has been productive for approximately the past 1 week. GI: No complaints of any abdomina l pain, nausea, vomiting, diarrhea, or constipation. : No report of any difficulty with urination . NEUROLOGIC: No complaints of any headaches or recent falls. HEMATOLOGIC: No history of any deep vein thrombosis or pulmonary embolism. PSYCHIATRIC: No history of depression or anxiety. ENDOCRIN E: No history of polyuria or heat intolerance. SKIN: No new skin rashes. MUSCULOSKELETAL: No foc al joint pains. PHYSICAL EXAM: VITAL SIGNS: Temperature 37.9 at its highest in the emergency room, blood pressure 1 70/87, heart rate 99, respirations 20, satting 93% on 2 L nasal cannula. GENERAL: The patient appea rs comfortable. He does have masked facies and bradykinesia, which is evident. HEENT: Extraocular movements appear intact. No scleral icterus is noted. NECK: Supple. No thyroid enlargement. CHES T: Very coarse breath sounds in the upper lung aviles bilaterally. No significant wheezing. Respir atory effort is normal. HEART: Soft heart sounds, regular. Systolic murmur right upper sternal bor parker. ABDOMEN: Soft, nontender, nondistended. : No Nash catheter in place. EXTREMITIES: No si gnificant pitting edema. Compression devices in place. NEUROLOGIC: Positive for pill-rolling tremo r, masked facies, and bradykinesia. LABS: White blood cell count 7, hemoglobin 15, platelets 197. Sodium 142, potassium 4.1, chloride 1 08, bicarb 28, BUN 32, creatinine 0.6, glucose of 91. INR is 1.2. Troponin 0.02. BNP 678. AST 17, ALT 12, alk phos 101. Procalcitonin 0.08. RSV and flu PCR negative. ABG shows pH 7.35/40/85. ASSESSMENT/PLAN: 1. Acute hypoxic respiratory failure. The patient's presentation sounds consistent with pneumonia; however, chest x-ray is clear at this time. I recommend further evaluation with a CT scan of the [facility] without contrast. I also recommend a respiratory pathogen panel to see if we can isolate any othe r viral agents, which could be playing a role. I did note the testing for respiratory syncytial viru s and flu was negative. Otherwise, for now, until we get additional information, we will continue to empirically cover with Levaquin and schedule DuoNeb nebulizers every 6 hours. Speech Therapy consul tation recommended as well for swallowing evaluation. 2. Parkinson disease. We will continue with current Sinemet dosing. 3. Chronic diastolic heart failure, history of, with mildly elevated BNP. We will administer a dose of Lasix in the morning. 4. Aortic stenosis, moderate by last echocardiogram. Consider repeat echo. 5. Hypertension, history of, but I do not see that he is on any current antihypertensive therapy. Gay mendoza does have some elevated blood pressure readings coming into the emergency room. I recommend we fol low these overnight. 6. Deep venous thrombosis prophylaxis. Lovenox. 7. Disposition. The patient is a oc-cut-xpvvctn-resuscitation code status. I will admit him under inpatient stay, and I anticipate it will take at least 48 hours to improve his overall condition. /[id number]/MODL
[2018-06-22] MEDS ORDERED: hydrALAZINE 20 MG/ML VIAL IVP PRN (20:13)
[2018-06-22] MEDS: CARBIDOPA/LEVODOPA 25 MG/100 MG TAB PO SCH (20:18)
[2018-06-22] MEDS: POLYETHYLENE GLYCOL 3350 17 GM PKT PO SCH (20:18)
[2018-06-22] MEDS: GABAPENTIN 300 MG CAP PO SCH (20:18)
[2018-06-22] MEDS: NS 1,000 ML IV SCH (20:49)
[2018-06-22] MEDS: IPRATROPIUM/ALBUTEROL 3 ML DEYVIAL IH SCH (21:44)
[2018-06-23] MEDS ORDERED: PNEUMOC 13-VAL CONJ-DIP CRM/PF 0.5 ML SYR (PREVNAR 13) IM ONE (00:01)
[2018-06-23 05:42] LABS: PLATELET COUNT 157 10^3/uL (150-400)
[2018-06-23] MEDS: CARBIDOPA/LEVODOPA 25 MG/100 MG TAB PO SCH ×5 (05:59→21:03)
[2018-06-23] MEDS: IPRATROPIUM/ALBUTEROL 3 ML DEYVIAL IH SCH ×4 (06:12→20:33)
--- NOTE | 2018-06-23 06:56 | PDMN ---
Medical Necessity Medical necessity: Pt meets INPT criteria per MD as of 06/22/18 and MCG M-282 Pneumonia, Community Acquired (with acute hypoxic respiratory failure, req IVABx , nebs, IV fluid, O2, suctioning; comorbid Parkinson disease, chronic diastolic heart failure, aortic stenosis, htn).
[2018-06-23] MEDS ORDERED: CETIRIZINE 10 MG TAB PO PRN (09:00)
[2018-06-23] MEDS: ENOXAPARIN 40 MG/0.4 ML SYR SC SCH (09:54)
[2018-06-23] MEDS: NS 1,000 ML IV SCH (09:54)
[2018-06-23] MEDS: ASPIRIN 81 MG CHEWABLE TAB PO SCH (09:56)
[2018-06-23] MEDS: POLYETHYLENE GLYCOL 3350 17 GM PKT PO SCH ×2 (09:57→20:54)
[2018-06-23] MEDS: GABAPENTIN 100 MG CAP PO SCH (09:57)
[2018-06-23] MEDS: FUROSEMIDE 40 MG/4 ML VIAL IVP SCH (10:02)
--- NOTE | 2018-06-23 11:14 | HOSPPROG ---
Hospitalist Progress Note Assessment/Plan: Otoniel Massey is an 83 y/o male who resides at [place]. He presented to the ER w c/o cough x 1 week. First encounter, chart reviewed. *acute hypoxemic respiratory failure - for influenza and -RSV -CT of chest shows bilateral peribronchial thickening, with left lower lobe pneumonia and mild mucous plugging. -ST evaluated swallowing-severe dysphagia -he has human rhinovirus, enterovirus *severe dysphagia -ordered a video *pneumonia, likely viral in origin -low procalcitonin -started on Levaquin *Parkinson's disease -Sinemet -asked nursing staff to try and give his meds w apple sauce, without Sinemet he is likely to have more weakness *chronic diastolic heart failure -mildly elevated BNP -Lasix * -consider an echo after further the above issues are addressed *HTN -bp is elevated and not on treatment -will order prn meds until his swallowing is further assessed *plan: video, will hold further diuresing until he is able to eat. Subjective: Otoniel said he is feeling fine. Objective: Vital Signs Temp Pulse Resp BP Pulse Ox 37.5 C 76 20 167/82 H 95 06/23/18 07:54 06/23/18 07:54 06/23/18 07:54 06/23/18 07:54 06/23/18 07:54 Laboratory Results 06/23/18 04:50 06/23/18 04:50 06/22/18 06/23/18 06/24/18 05:59 05:59 05:59 Intake Total 268 Output Total 510 Balance -242 PT 15.5 SEC (12.0-15.0) H 06/22/18 11:50 INR 1.21 (0.83-1.16) H 06/22/18 11:50 - Physical Exam Constitutional: appears nourished, chronically ill appearing Eyes: PERRL Ears, Nose, Mouth, Throat: hearing normal Cardiovascular: regular rate and rhythym, systolic murmur Respiratory: no respiratory distress, reduced air movement Genitourinary: roche in urethra Skin: warm Musculoskeletal: other (rigid) Neurologic: other (alert) ICD10 Worksheet Patient Problems: Problems Problem Status Onset Altered mental status Acute Altered mental status Acute Bradykinesia Acute Fall at home Chronic Hypertension Chronic Parkinsons disease Chronic Weakness Chronic
[2018-06-23] MEDS: LATANOPROST 0.005% 2.5 ML OPHT DROPS EACHEYE SCH (11:28)
--- NOTE | 2018-06-23 14:44 | ASMTCMCOM ---
CM Note CM Note Notes: Case Management Chart Review for Discharge Support: Patient is a 83 year old male, presents to ED via EMS from [facility] with his Keshia for fever, generalized weakness, upper respiratory secretions, cough. Past medical history includes Parkinson's disease, coronary artery disease, aortic stenosis, hypertension, multiple orthopedic surgeries. Patient is extremely poor historian and requires total care. Patient admitted for acute hypoxemic respiratory failure, severe dysphagia, pneumonia. CM spoke with MARILYN Buchanan, patient is on IV antibiotics. RADIO TIME BUYER assessed, swallow study/video ordered and is scheduled for tomorrow morning. CM to follow. D/C Plan: TBD, return to [place] Date Signed: 06/23/2018 02:44 PM Electronically Signed By:Paola Youssef
[2018-06-23] MEDS: GABAPENTIN 300 MG CAP PO SCH (21:03)
--- NOTE | 2018-06-23 22:10 | CPEKG ---
Test Reason : OPEN Blood Pressure : / mmHG Vent. Rate : 090 BPM Atrial Rate : 089 BPM P-R Int : 152 ms QRS Dur : 108 ms QT Int : 365 ms P-R-T Axes : 046 -23 -01 degrees QTc Int : 447 ms Sinus rhythm Borderline left axis deviation Borderline T abnormalities, inferior leads Confirmed by Guillermo Garcia ([id number]) on 06/23/2018 10:09:46 PM Referred By: Confirmed By:Guillermo Garcia
[2018-06-24] MEDS: IPRATROPIUM/ALBUTEROL 3 ML DEYVIAL IH SCH ×4 (04:55→20:56)
[2018-06-24] MEDS: CARBIDOPA/LEVODOPA 25 MG/100 MG TAB PO SCH ×4 (06:17→20:24)
[2018-06-24] MEDS: ENOXAPARIN 40 MG/0.4 ML SYR SC SCH (08:46)
[2018-06-24] MEDS: FUROSEMIDE 40 MG/4 ML VIAL IVP SCH (08:46)
[2018-06-24] MEDS: DULoxetine 20 MG CAP PO SCH (09:29)
[2018-06-24] MEDS: POLYETHYLENE GLYCOL 3350 17 GM PKT PO SCH ×2 (09:29→20:25)
[2018-06-24] MEDS: ASPIRIN 81 MG CHEWABLE TAB PO SCH (09:29)
[2018-06-24] MEDS: GABAPENTIN 100 MG CAP PO SCH (09:29)
[2018-06-24] MEDS: LATANOPROST 0.005% 2.5 ML OPHT DROPS EACHEYE SCH (10:37)
--- NOTE | 2018-06-24 13:37 | HOSPPROG ---
Hospitalist Progress Note Assessment/Plan: Otoniel Massey is an 83 y/o male who resides at [place]. He presented to the ER w c/o cough x 1 week. *acute hypoxemic respiratory failure - for influenza and -RSV -CT of chest shows bilateral peribronchial thickening, with left lower lobe pneumonia and mild mucous plugging. -ST evaluated swallowing-severe dysphagia -he has human rhinovirus, enterovirus *severe dysphagia -ordered a video but he is unable to waken up enough for this *pneumonia, likely viral in origin -low procalcitonin -started on Levaquin *Parkinson's disease -Sinemet -asked nursing staff to try and give his meds w apple sauce, without Sinemet he is likely to have more weakness *chronic diastolic heart failure -mildly elevated BNP -Lasix IV had been given * -ongoing *HTN -bp is elevated and not on treatment -will order prn meds until his swallowing is further assessed *plan: After discussion with the patient's and his son, Blake, Otoniel has been declining for a period of time. He hasn't eaten much in days, minimally responsive for days. He has stopped walking and is wheelchair bound. His said in his Living Will, he does not want any heroic measures and absolutely no feeding tube. He is minimally responsive today. Have asked for Hospice evaluation, this will occur today @ 15:30. His would like him home w hospice. Subjective: Otoniel is not interacting. Objective: Vital Signs Temp Pulse Resp BP Pulse Ox 37.0 C 73 18 147/97 H 90 L 06/24/18 07:37 06/24/18 11:07 06/24/18 11:07 06/24/18 07:37 06/24/18 11:07 Laboratory Results 06/23/18 04:50 06/23/18 04:50 06/23/18 06/24/18 06/25/18 05:59 05:59 05:59 Intake Total 268 2231 270 Output Total 510 2250 1000 Balance -242 -19 -730 PT 15.5 SEC (12.0-15.0) H 06/22/18 11:50 INR 1.21 (0.83-1.16) H 06/22/18 11:50 - Physical Exam Constitutional: chronically ill appearing Cardiovascular: regular rate and rhythym Respiratory: bronchial breath sounds, rhonchi Gastrointestinal: normoactive bowel sounds Genitourinary: roche in urethra Skin: other (flushed) Psychiatric: other (not interactive) ICD10 Worksheet Patient Problems: Problems Problem Status Onset Chronic Disease Mgmt/Transitional care Acute Pneumonia Acute Altered mental status Acute Altered mental status Acute Bradykinesia Acute Fall at home Chronic Hypertension Chronic Parkinsons disease Chronic Weakness Chronic
--- NOTE | 2018-06-24 15:06 | ASMTCMCOM ---
CM Note CM Note Notes: CM spoke to Mandi Mi NP. CM met w/ pt's Keshia and pts son Blake. CM provided flow sheet explaining palliative vs hospice. Keshia would like a referral made to [facility]. Referral sent to [facility]. [facility] will come out today at 3:30PM for an informational on pal and hospice. Date Signed: 06/24/2018 03:05 PM Electronically Signed By:BESSIE Cisneros
[2018-06-24] MEDS: NS 1,000 ML IV SCH (15:45)
--- NOTE | 2018-06-24 16:41 | ASMTCMCOM ---
KARTIK Note KARTIK Note Notes: Ping from [facility] came and met w/ pts . has agreed to hospice at home. Ping will arrange for pt to be picked up at 1pm tomorrow w/ [facility]. Ping will fax PCS over to [facility] transport. Ping will set up DME. CM notified [place] that pt is being d/c'd tomorrow back home to wifes residence. Date Signed: 06/24/2018 04:40 PM Electronically Signed By:BESSIE Cisneros
[2018-06-24] MEDS: GABAPENTIN 300 MG CAP PO SCH (20:24)
[2018-06-25] MEDS: IPRATROPIUM/ALBUTEROL 3 ML DEYVIAL IH SCH ×2 (05:03→10:26)
[2018-06-25] MEDS: NS 1,000 ML IV SCH (05:40)
[2018-06-25] MEDS: CARBIDOPA/LEVODOPA 25 MG/100 MG TAB PO SCH ×2 (05:41→12:17)
[2018-06-25] MEDS: ASPIRIN 81 MG CHEWABLE TAB PO SCH (09:17)
[2018-06-25] MEDS: POLYETHYLENE GLYCOL 3350 17 GM PKT PO SCH (09:18)
[2018-06-25] MEDS: GABAPENTIN 100 MG CAP PO SCH (09:18)
[2018-06-25] MEDS: DULoxetine 20 MG CAP PO SCH (09:18)
[2018-06-25] MEDS: ENOXAPARIN 40 MG/0.4 ML SYR SC SCH (09:24)
[2018-06-25] MEDS: FUROSEMIDE 40 MG/4 ML VIAL IVP SCH (09:24)
[2018-06-25] MEDS: LATANOPROST 0.005% 2.5 ML OPHT DROPS EACHEYE SCH (09:25)
--- NOTE | 2018-06-25 10:11 | ASMTLACE ---
LACE Length of stay for Answers: 3 days current admission Acuity / Level of Answers: Yes Care: Did the patient have an inpatient admission? Comorbidities - select Answers: Congestive heart failure all that apply Coronary Artery Disease Other Notes: parkinsons # of Emergency department Answers: 0 visits in the last 6 months Score: 11 Date Signed: 06/25/2018 10:10 AM Electronically Signed By:BESSIE Cisneros
--- NOTE | 2018-06-25 11:23 | HOSPPROG ---
Hospitalist Progress Note Assessment/Plan: Otoniel Massey is an 83 y/o male who resides at [place]. He presented to the ER w c/o cough x 1 week. *acute hypoxemic respiratory failure - for influenza and -RSV -CT of chest shows bilateral peribronchial thickening, with left lower lobe pneumonia and mild mucous plugging. -ST evaluated swallowing-severe dysphagia -he has human rhinovirus, enterovirus *severe dysphagia -ordered a video but he was unable to waken up enough for this -will let him eat what he likes, he is going to hospice today *pneumonia, likely viral in origin -low procalcitonin -started on Levaquin *Parkinson's disease -Sinemet -asked nursing staff to try and give his meds w apple sauce, without Sinemet he is likely to have more weakness *chronic diastolic heart failure -mildly elevated BNP -Lasix IV had been given * -ongoing *HTN -bp is elevated and not on treatment *plan: dc to Hospice today Subjective: Otoniel is more awake and says he isn't in pain. Objective: Vital Signs Temp Pulse Resp BP Pulse Ox 36.6 C 88 16 158/82 H 95 06/25/18 08:06 06/25/18 10:21 06/25/18 08:06 06/25/18 08:06 06/25/18 10:21 Laboratory Results 06/23/18 04:50 06/23/18 04:50 06/24/18 06/25/18 06/26/18 05:59 05:59 05:59 Intake Total 2231 1170 Output Total 2250 1625 Balance -19 -455 PT 15.5 SEC (12.0-15.0) H 06/22/18 11:50 INR 1.21 (0.83-1.16) H 06/22/18 11:50 - Physical Exam Constitutional: chronically ill appearing Eyes: PERRL Ears, Nose, Mouth, Throat: hearing normal Cardiovascular: systolic murmur (loud -left sternal border) Respiratory: bronchial breath sounds, rhonchi Genitourinary: roche in urethra Skin: warm Neurologic: other (alert and talking more today) Psychiatric: interacting appropriately ICD10 Worksheet Patient Problems: Problems Problem Status Onset Chronic Disease Mgmt/Transitional care Acute Pneumonia Acute Altered mental status Acute Altered mental status Acute Bradykinesia Acute Fall at home Chronic Hypertension Chronic Parkinsons disease Chronic Weakness Chronic
--- NOTE | 2018-06-25 11:31 | PDIAF ---
- Diagnosis Diagnosis: human rhinovirus, enterovirus, adv Parkinson, severe dysphagi Code Status: Do Not Resuscitate - Medication Management Discharge Medications: electronically signed and located in the Home Medication List. PICC Care - Routine: N/A - Orders Isolation Type: Droplet Isolation Diet Recommendation: no restrictions on diet Additional Instructions: care per hospice family and hospice to decide on his medication regimen If the family wants further treatment for pneumonia, can continue Levaquin - Follow Up Care Current Providers and Referrals: Patient,NotPresent [Unknown] - As per Instructions
--- NOTE | 2018-06-25 11:49 | ASDISCHSUM ---
Discharge Information Plan Status:Hospice-Home Medically Cleared to Leave:06/24/2018 Discharge Date:06/24/2018 CM D/C Disposition: ADT D/C Disposition:Hospice Home Projected Discharge Date:06/25/2018 11:00 AM Transportation at D/C: Discharge Delay Reason: Follow-Up Date:06/25/2018 11:00 AM Discharge Slot: Final Diagnosis: Placement Information Referral Type:*Detention/SNF Referral ID:[id number] Provider Name: Address 1: Phone Number: Address 2: Fax Number: City: Selection Factors: State: Referral Type:Palliative Care Referral ID:[id number] Provider Name:[facility] Address 1:[address] Address 2: City:[place] Selection Factors: State:[place] Patient Contact Information Contact Name:ALISON Relationship: Address:[address] Work Phone: City:[place] Alternate Phone: [facility]/Zip Code:[place] [address] Email: Financial Information Financial Class:Medicare Primary Plan Desc:MEDICARE INPATIENT Primary Plan Number:[id number] Secondary Plan Desc:NORMA M/C SUPPLEMENT Secondary Plan Number:[id number] Assessment Information [facility] Progress Note CM Note CM Note Notes: Case Management Chart Review for Discharge Support: Patient is a 83 year old male, presents to ED via EMS from [facility] with his Keshia for fever, generalized weakness, upper respiratory secretions, cough. Past medical history includes Parkinson's disease, coronary artery disease, aortic stenosis, hypertension, multiple orthopedic surgeries. Patient is extremely poor historian and requires total care. Patient admitted for acute hypoxemic respiratory failure, severe dysphagia, pneumonia. CM spoke with MARILYN Buchanan, patient is on IV antibiotics. CANDY COOKER HELPER assessed, swallow study/video ordered and is scheduled for tomorrow morning. CM to follow. D/C Plan: JARON, return to [place] Date Signed: 06/23/2018 02:44 PM Electronically Signed By:Paola Youssef LACE LACE Length of stay for Answers: 3 days current admission Acuity / Level of Answers: Yes Care: Did the patient have an inpatient admission? Comorbidities - select Answers: Congestive heart failure all that apply Coronary Artery Disease Other Notes: parkinsons # of Emergency department Answers: 0 visits in the last 6 months Score: 11 Date Signed: 06/25/2018 10:10 AM Electronically Signed By:BESSIE Cisneros [facility] KARTIK Progress Note KARTIK [place] CM Note Notes: KARTIK spoke to Mandi Mi NP. CM met w/ pt's Keshia and pts son Blake. CM provided flow sheet explaining palliative vs hospice. Keshia would like a referral made to [facility]. Referral sent to [facility]. [facility] will come out today at 3:30PM for an informational on pal and hospice. Date Signed: 06/24/2018 03:05 PM Electronically Signed By:BESSIE Cisneros [facility] KARTIK Progress Note CM Note CM Note Notes: Ping from [facility] came and met w/ pts . has agreed to hospice at home. Ping will arrange for pt to be picked up at 1pm tomorrow w/ [facility]. Ping will fax PCS over to [facility] transport. Ping will set up DME. CM notified Catherine that pt is being d/c'd tomorrow back home to wifes residence. Date Signed: 06/24/2018 04:40 PM Electronically Signed By:BESSIE Cisneros Case Management Discharge Plan Note Case Management Discharge Discharge Order Complete? Answers: Yes Patient to Obtain Answers: Other Notes: [facility] Medications Transportation Arranged Answers: Other Notes: [facility] transport Transport will Pick (Date 06/25/2018 02:00 PM & Time) EMTALA Complete Answers: No Case Management Transport Answers: Yes Notes: [facility] faxed over Form Complete PCS form Faxed Final Orders Answers: Yes Agency/Facility Transfer Answers: Yes Report Printed & Faxed to Receiving Agency Family Notified Answers: Yes Discharge Comments Notes: Pts case discussed w/ Mandi Mi NP. Pt is being d/c'd back home to his residence with his . [facility] will set up DME. [facility] will fax over PCS form to [employer]. DC orders sent to [facility]. CM available for changes. Plan: Home w/ [facility] Date Signed: 06/25/2018 11:48 AM Electronically Signed By:BESSIE Cisneros Intervention Information
--- NOTE | 2018-06-25 11:49 | ASMTDCNOTE ---
Case Management Discharge Discharge Order Complete? Answers: Yes Patient to Obtain Answers: Other Notes: [facility] Medications Transportation Arranged Answers: Other Notes: [facility] stretcher transport Transport will Pick (Date 06/25/2018 02:00 PM & Time) EMTALA Complete Answers: No Case Management Transport Answers: Yes Notes: [facility] faxed over Form Complete PCS form Faxed Final Orders Answers: Yes Agency/Facility Transfer Answers: Yes Report Printed & Faxed to Receiving Agency Family Notified Answers: Yes Discharge Comments Notes: Pts case discussed w/ Mandi Mi NP. Pt is being d/c'd back home to his residence with his . [facility] will set up DME. [facility] will fax over PCS form to [facility] transport. DC orders sent to [facility]. CM available for changes. Plan: Home w/ [facility] Date Signed: 06/25/2018 11:48 AM Electronically Signed By:BESSIE Cisneros
[2018-06-25 11:55] VITALS: BP 146/80
--- NOTE | 2018-06-25 12:51 | GDS ---
DISCHARGE DIAGNOSES: 1. Acute hypoxemic respiratory failure secondary to human rhinovirus and enterovirus. 2. Severe dysphagia. 3. Likely viral pneumonia. 4. Parkinson disease. 5. Chronic diastolic heart failure. 6. Aortic stenosis. 7. Hypertension. HISTORY: Briefly, the patient is a very nice 83-year-old gentleman with a history significant for Pa rkinson's. He resides at [place]. He presented to the emergency room on June 22 with complaints of worsening cough over the past week. He was also noted to be febrile. PCR testing for RSV and inf luenza was negative, but it was noted that he had the human rhinovirus and enterovirus. He was treat ed with Levaquin. He was seen by Speech Therapy. He has severe dysphagia. During his stay, at time s, he was completely non-interactive and was unable to do the video esophagram to evaluate his swallo wing. He may require a feeding tube. His family said in his living will, he does not want a feeding tube placed. It is likely that he is aspirating from severe dysphagia. He will be discharged home with hospice care. HOSPITAL COURSE: 1. Acute hypoxemic respiratory failure. He had a CT of the chest that shows bilateral peribronchial thickening, with left lower lobe pneumonia and mild mucus plugging. He was evaluated by Speech Ther apy. He has severe dysphagia. 2. Severe dysphagia. At this time, will let him eat what he likes. He will be going to hospice. 3. Pneumonia, likely viral in origin. His procalcitonin level is low. He was treated with Levaquin . 4. Parkinson disease. Sinemet. 5. Chronic diastolic heart failure. He had been given a dose of IV Lasix x1. 6. Aortic stenosis, ongoing. 7. Hypertension. His blood pressure is elevated. He is not on any current treatment. DISCHARGE CONDITION: Stable. 158/82, heart rate of 77, respiratory rate of 16. O2 sats on 3 L are 99%. Temperature is 36.6 Celsius. DISCHARGE MEDICATIONS: To be decided by hospice and by his . Greater than 30 minute discharging and coordinating the patient's care. I also will call Dr. Nair and inform her of the patient's care, going to hospice. Copy requested to: Dr. Nair [place][id number]/[facility] [place]
== END 2018-06-25 13:13 | disposition hospice, home (50) | DRG 193 ==
LOC: EDUNIT# → F3E 17:21 → OBSVTOIN 18:27
PROVIDERS: ADMIT Internal Medicine; ATTEND Internal Medicine
DX: J12.9 Viral pneumonia, unspecified (principal); J96.01 Acute respiratory failure with hypoxia; I11.0 Hypertensive heart disease with heart failure; I50.32 Chronic diastolic (congestive) heart failure; B97.89 Other viral agents as the cause of diseases classified elsewhere; B97.19 Other enterovirus as the cause of diseases classified elsewhere; R13.19 Other dysphagia; E86.9 Volume depletion, unspecified; G20 Parkinson's disease; I35.0 Nonrheumatic aortic (valve) stenosis; Z23 Encounter for immunization; Z99.3 Dependence on wheelchair; Z66 Do not resuscitate
CPT/HCPCS: 84484-ER; 92610-GN; 96374; G0009; J1650; J1940; J1956